=== PATIENT | female | born 1955 | race Hispanic/Latino ===

== ENCOUNTER → 2018-12-02 | Outpatient (CLI) | payer OTHER | LOC: MAMMO 13:21 | PROVIDERS: ATTEND Internal Medicine | DX: Z12.31 Encounter for screening mammogram for malignant neoplasm of breast (principal); M81.0 Age-related osteoporosis without current pathological fracture | CPT/HCPCS: 77067 ==

== ENCOUNTER → 2019-12-01 | Outpatient (CLI) | payer OTHER | LOC: MAMMO 14:10 | PROVIDERS: ATTEND Internal Medicine | DX: Z12.31 Encounter for screening mammogram for malignant neoplasm of breast (principal) | CPT/HCPCS: 77067 ==

== ENCOUNTER → 2021-08-10 | Outpatient (CLI) | payer OTHER | LOC: MAMMO 09:02 | PROVIDERS: ATTEND Internal Medicine | DX: Z12.31 Encounter for screening mammogram for malignant neoplasm of breast (principal) | CPT/HCPCS: 77067 ==

== ENCOUNTER → 2021-10-06 | Outpatient (CLI) | payer MEDICARE | LOC: US 12:59 | PROVIDERS: ATTEND Internal Medicine | DX: D25.9 Leiomyoma of uterus, unspecified (principal) | CPT/HCPCS: 76856 ==